=== PATIENT | female | born 1970 | race Caucasian/White ===

== ENCOUNTER → 2016-11-14 | Outpatient (CLI) | payer BC ==
[~2016-11-14] MED LIST: ATOR10TA60 PO; BUPIVACAINE MPF 0.5% 10 ML VIAL for KCIC. IJ ONE; CITA20TA5 PO; CONTRAST GIVEN MC PRN; FERR-26 PO; IOHEXOL 300 MG/ML 50 ML VIAL. INT ART ONE; LIDOCAINE 1% Multi-Dose 20 ML VIAL. ID ONE; LOSA50TA6 PO; METF-620 PO; PIOG30TA3 PO; methylPREDNISolone ACETATE 40 MG/ML VIAL. INT ART ONE
--- NOTE | 2016-11-14 11:42 | KCIC ---
Right hip injection History: Right hip pain Findings: Patient was informed of the risks to include pain, infection, bleeding, nerve or blood vessel injury, and allergic reaction. All questions were answered. The patient signed a written consent form for a right hip injection. Patient was placed in a supine position. External skin site overlying the right hip was prepped and draped in the usual sterile fashion. Betadine was utilized for cleansing solution. 1% lidocaine was utilized for local anesthesia to the depth of the right femoral neck. 22-gauge spinal needle was advanced to the margin of the right femoral neck. Solution containing 2 mL Depo-Medrol , 4 cc lidocaine, 4 cc Omnipaque 300, and 4 cc Marcaine were injected. Injection demonstrated intra-articular position of the needle tip although only 6 cc of the solution could be injected at which point there was firm resistance to further injection despite needle repositioning. Needle was removed. There were no immediate complications. Bandage was applied at site of puncture. Fluoroscopy time: 49 seconds, 2 fluoroscopic images. Impression: 1. Technically successful right hip injection without immediate complication. Electronically signed by: Alen Rojas MD (11/14/2016 11:38 AM)
== END | disposition home or self-care (01) ==
LOC: KCIC 10:14
PROVIDERS: ATTEND Orthopaedic Surgery Sports Medicine
DX: M25.551 Pain in right hip (principal); G89.29 Other chronic pain
CPT/HCPCS: 20610; 77002; J1030; Q9967

== ENCOUNTER 2016-12-09 18:22 | Inpatient (IN) | payer BC ==
[~2016-12-09] VITALS: Ht 160 cm; Wt 71.9 kg
[~2016-12-09 18:22] MED LIST changes: -BUPIVACAINE MPF 0.5% 10 ML VIAL for KCIC. IJ ONE; -CONTRAST GIVEN MC PRN; -IOHEXOL 300 MG/ML 50 ML VIAL. INT ART ONE; -LIDOCAINE 1% Multi-Dose 20 ML VIAL. ID ONE; -methylPREDNISolone ACETATE 40 MG/ML VIAL. INT ART ONE
[2016-12-09] MEDS ORDERED: DESFLURANE 31 TO 60 MINUTES IH ONE (19:21)
[2016-12-09] MEDS ORDERED: DEXAMETHASONE SOD PHOS 20 MG/5 ML VIAL. ONE (19:22)
[2016-12-09] MEDS ORDERED: ROCURONIUM 50 MG/5 ML VIAL. ONE (19:22)
[2016-12-09] MEDS ORDERED: PROPOFOL 20 ML IV ONE (19:22)
[2016-12-09] MEDS ORDERED: LIDOCAINE 2% PF Vial for OR 5 ML VIAL. ONE (19:22)
[2016-12-09] MEDS ORDERED: ONDANSETRON PF 4 MG/2 ML VIAL. ONE (19:22)
[2016-12-09] MEDS ORDERED: GLYCOPYRROLATE 1 MG/5 ML VIAL. ONE (19:22)
[2016-12-09] MEDS ORDERED: NEOSTIGMINE METHYLSULFATE 5 MG/5 ML SYRINGE. ONE (19:22)
[2016-12-09] MEDS ORDERED: MIDAZOLAM HCL/PF 2 MG/2 ML VIAL. ONE (19:22)
[2016-12-09] MEDS ORDERED: fentaNYL PF VIAL 100 MCG/2 ML VIAL ONE ×3 (19:22→21:17)
[2016-12-09] MEDS ORDERED: BUPIVACAINE-EPI 0.5%-1:200000 50 ML VIAL. ONE (19:27)
[2016-12-09] MEDS ORDERED: ceFAZolin 1GM IVPB FOR OMNI 100 ML IV ONE (19:28)
[2016-12-09] MEDS ORDERED: KETOROLAC 30 MG/ML INJ FOR OR. INJ ONE (19:34)
[2016-12-09] MEDS ORDERED: ePHEDrine PF IN SALINE 50 MG/5 ML DISP.SYRIN IV ONE (19:48)
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
[2016-12-09] MEDS ORDERED: PHENYLEPHRINE in 0.9% NACL PF 1 MG/10 ML DISP.SYRIN. IV ONE (20:01)
[2016-12-09] MEDS ORDERED: MORPHINE SULFATE 10 MG/ML VIAL. ONE (20:36)
[2016-12-09] MEDS ORDERED: ONDANSETRON PF 4 MG/2 ML VIAL. IV PRN ×2 (21:15→21:30)
[2016-12-09] MEDS ORDERED: MORPHINE SULFATE 2 MG/ML DISP.SYRIN. IV PRN (21:15)
[2016-12-09] MEDS ORDERED: fentaNYL PF VIAL 100 MCG/2 ML VIAL IV PRN ×2 (21:15)
[2016-12-09] MEDS ORDERED: IV RINGERS,LACTATED 1000ML 1,000 ML IV SCH (21:15)
[2016-12-09] MEDS ORDERED: PROCHLORPERAZINE 10 MG/2 ML VIAL. IV PRN (21:15)
[2016-12-09] MEDS ORDERED: HYDROmorphone 2 MG/ML VIAL IV PRN (21:15)
[2016-12-09] MEDS ORDERED: LIDOCAINE 1% 1 ML SYRINGE. ID PRN (21:15)
--- NOTE | 2016-12-09 21:18 | PDOC4 ---
OPERATIVE NOTE: dos 12/09/16 (dictation line down) pre and post op dx: incarcerated recurrent incisional hernia procedure repair of incarcerated recurrent incisional hernia with mesh shravan reyna ebl 25 ivf 1300 indications: presents with incarcerated hernia and sbo findings: bowel viable. hernia repaired with 8 cm bard ventralex patch placed in retrorectus/preperitoneal space procedure in detail: after site marked and informed consent was obtained, she was taken to the OR and placed in supine position. after induction of general anesthetic, she was prepped and draped in sterile fashion. incision made over the hernia. hernia located in right lateral lower abdomen just above the iliac crest--more lateral and superior than an inguinal hernia and more lateral than typical spigellian hernia. subq tissue divided with cautery. hernia sac encountered and entered sharply. viable bowel within sac was able to be reduced. sac dissected from surrounding tissue and at level of fascia, the sac/peritoneum was dissected away from the fascia circumferentially. in doing so, the dissection was in the retrorectus space medially and preperitoneal space inferiorly extending deep to the iliac crest and retroperitoneum laterally. the excess hernia sac was excised and the sac closed with 3-0 vicryl in running fashion. the 8 cm bard patch was placed in the retrorectus/preperitoneal/retroperitoneal space. the hernia defect was approx 2x3 cm. the mesh extended past the fascial edges for several cm. the mesh was secured to the fascia in at least 6-7 places with 0- prolene suture. the fascia was closed over the mesh with running 0-prolene suture. the area was irrigated. it was hemostatic as the repair was being performed. the site was injected with local. scarpas closed with 3-0 vicryl. skin closed with 4-0 monocryl subq fashion. sterile dressing was placed. joyce procedure well. no complicatoins. in process of tx to rr in stable condition. KRISTAL WALKER MD Dec 09, 2016 21:18
[2016-12-09] MEDS ORDERED: METOCLOPRAMIDE HCL 10 MG/2 ML VIAL. IV PRN (21:30)
[2016-12-09 22:15] VITALS: BP 135/67
[2016-12-09 22:30] VITALS: BP 130/67
[2016-12-09 22:45] VITALS: BP 125/67
[2016-12-09 23:00] VITALS: BP 130/71
[2016-12-09 23:15] VITALS: BP 118/59
[2016-12-09 23:45] VITALS: BP 123/63
[2016-12-09] MEDS: oxyCODONE/APAP 5/325 1 TAB TABLET PO PRN (23:50)
[2016-12-10] VITALS (8 sets, daily range): BP systolic 90–126; BP diastolic 41–65
--- NOTE | 2016-12-10 04:15 | ACF ---
Admission Forms Criteria ABDOMINAL PAIN Clinical Indications for Admission to Inpatient Care (Place 'X' for any and all applicable criteria): Admission is indicated for ANY ONE of the following(1)(2)(3)(4)(5): [ ]I. Inpatient admission required rather than observation care (Also use Abdominal Pain: Observation Care, as appropriate) because of ANY ONE of the following: [ ]a) Severe pain requiring acute inpatient management [ ]b) Identification of etiology/finding that requires inpatient care (eg, aortic dissection, free air) [ ]c) Absent bowel sounds with complete ileus(6) [ ]d) Suspected toxic megacolon [ ]e) Severe electrolyte abnormalities requiring inpatient care [ ]f) High fever or infection requiring inpatient admission as indicated by ANY ONE of following(7)(8): [ ] i) Appropriate outpatient or observational care antimicrobial treatment unavailable, not effective, or not feasible [ ] ii) Documented bacteremia [ ] iii) Temperature > 104.9 degrees F (oral) [ ] iv) T >103.1 F (oral) or < 96.8 F(rectal) that does not respond to all emergency treatment measures [ ]g) Signs of intestinal obstruction [B] [ ]h) Hemodynamic instability [ ]i) IV fluid to replace significant ongoing losses (greater than 3 L/m2 per day) (12)(13) [ ]j) Percutaneous or open drainage (eg, abscess, biliary tract ) procedures [ ]k) Parenteral nutrition regimen that must be implemented on inpatient basis [ ]l) Other condition,treatment or monitoring requiring inpatient admission. [ ]II. Peritoneal signs present [ X]III. Surgery needed that cannot be performed on an ambulatory basis. [ ]IV. Evaluation requires patient to not eat or drink for extended period ( eg, more than 24 hours). [ ]V. Contraindications and/or Inappropriate clinical situations for Observational Care in patients with abdominal pain, when ANY ONE of the following is required: [ ]a) Thorough evaluation is required to prevent catastrophic events due to delays in diagnosing (e.g.Mesenteric ischemia) 1,3 [ ]b) Patient with severe pathology or with chronic symptoms unlikely to improve in the ED stay (3) [ ]. General contraindications and/or Inappropriate clinical situations for Observational Care in patients with abdominal pain, when ANY ONE of the following is required: [ ]a) Prediction of prolongation of LOS based on ANY ONE of the following may be considered as a contraindication for observational care 2, 3, 4, 5, 6, 7, 8, 9, 10, 11 [ ]i) Age > 65 yrs. [ ]ii) Patient arriving by ambulance [ ]iii) Patient with high acuity [ ]iv) Patient requiring vital sign monitoring [ ]v) Patient on IV medication [ ]b) Systolic blood pressures 180mmHg 3,12 [ ]c) Patient with altered mental status including delirium and other alteration of consciousness, (3) [ ]d) Patient whose discharge disposition will be to a care home home or rehabilitation home should not be managed in Emergency Department Observation Unit. CMS rule requires 3 days hospital stay before such placement.3,13 [ ]e) Patient with failure to thrive due to broad array of etiologies 3,16,17 [ ]f) Inability to ambulate 3,14 Extended stay beyond goal length of stay may be needed for(2)(3): [ ]a) Persistent abdominal pain with suspected intra-abdominal process [ ]b) Diagnosed condition requiring continued stay (e.g., pancreatitis, complicated diverticulitis) [ ]c) Surgery (e.g., colectomy) The original [employer] [facility] the [facility] content created by [employer] has been revised. The portions of the content which have been revised are identified through the use of italic text or in bold, and [facility] has neither reviewed nor approved the modified material.All other unmodified content is copyright [employer] includes the [facility]. Please see references footnoted in the original [facility] [employer] edition 2016 Admission Criteria Met?: Yes RAY SANTOS Dec 10, 2016 04:15
[2016-12-10] MEDS: oxyCODONE/APAP 5/325 1 TAB TABLET PO PRN ×4 (06:10→22:57)
--- NOTE | 2016-12-10 16:29 | PDOC ---
Provider Note Provider Note doing well. pain controlled joyce po, no flatus or bm afeb vss ambulating in halls after i saw her. abd soft nd min tender at inc inc: some old dark blood serosang drainage expressed through wound, wound now dry. redressed with mastisol, steristrips, 4x4 and tape after cleansing with alcohol. a/p pod #1 incarcerated recurrent incisional hernia repair with mesh. pt thinks she still too weak/unsteady to dc home today. KRISTAL WALKER MD Dec 10, 2016 16:29
[2016-12-10] MEDS ORDERED: SENNOSIDES/DOCUSATE 8.6/50MG TABLET. PO PRN (16:45)
--- NOTE | 2016-12-10 16:59 | PDOC ---
Provider Note Provider Note given bleeding at wound today during dressing changes and the fact that she is up and ambulating in the halls, will not start pharmocologic dvt proph (like lovenox or heparin). KRISTAL WALKER MD Dec 10, 2016 16:59
[2016-12-10] MEDS: POLYETHYLENE GLYCOL 3350 17 GM PACKET. PO PRN (18:07)
[2016-12-11] MEDS: oxyCODONE/APAP 5/325 1 TAB TABLET PO PRN ×3 (03:00→14:41)
[2016-12-11 03:35] VITALS: BP 106/62
[2016-12-11 07:00] VITALS: BP 118/57
[2016-12-11] MEDS: POLYETHYLENE GLYCOL 3350 17 GM PACKET. PO PRN (08:21)
[2016-12-11 11:00] VITALS: BP 101/54
--- NOTE | 2016-12-11 13:03 | PDOC ---
Provider Note Provider Note feeling well. joyce po. +flatus. no bm afeb vss abd soft nd nt inc cdi a/p dc home KRISTAL WALKER MD Dec 11, 2016 13:03
[2016-12-11] MEDS ORDERED: OXYC-323 PO (14:50)
[2016-12-11 15:00] VITALS: BP 120/60
--- NOTE | 2016-12-13 12:12 | PATHOLOGY ---
PATHOLOGY REPORT * * * * * * * * FINAL DIAGNOSIS: Segment of focal mesothelial-lined fibromembranous and fibroadipose tissue, incisional/incarcerated hernia repair: - Hernia sac showing congestion and focal recent hemorrhage. (JPM:mgr; 12/12/2016) REPORT ELECTRONICALLY SIGNED BY: Jose Carlos Munroe M.D. DATE/TIME: 12/12/2016 13:43 * * * * * * * * GROSS PATHOLOGY: Received in formalin labeled "Vasquez Ramirez, hernia sac," is a piece of dark purple sesay membranous tissue measuring 12.7 x 3.7 x 1.8 cm. No nodules or lesions are identified. 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 (JPM; 12/11/16) INITIAL CPT CODE(S): A; 00663 Professional services performed by [id number] [place] [address] Technical services performed by [facility] at [address] [place] [address] [address], [place] [address]. SPECIMEN(S) RECEIVED: A.Hernia sac CLINICAL HISTORY: PATIENT: VASQUEZ RAMIREZ /AGE: 902/18/1970 (Age: 46) PATIENT #: [id number] ALT CASE #: SPECIMEN COLLECTION DATE: 12/09/2016 SPECIMEN RECEIVED DATE: 12/11/2016 [facility] - [address] [place] [address] - PHONE: [phone] * * * END OF REPORT * * *
== END 2016-12-11 14:45 | disposition home or self-care (01) | DRG 355 ==
LOC: 4 NORTH 19:12
PROVIDERS: ADMIT Surgery; ATTEND Surgery
PROC: 0WUF0JZ Supplement Abdominal Wall with Synthetic Substitute, Open Approach (ICD-10-PCS; principal; 2016-12-09 19:23)
DX: K43.0 Incisional hernia with obstruction, without gangrene (principal); F32.9 Major depressive disorder, single episode, unspecified; Z90.710 Acquired absence of both cervix and uterus; Z88.2 Allergy status to sulfonamides; Z90.89 Acquired absence of other organs; I10 Essential (primary) hypertension; Z93.8 Other artificial opening status
CPT/HCPCS: A4215; A6539; J0690; J1100; J1885; J2001; J2250; J2270; J2370; J2405; J2704; J2710; J3010; J3490; J7120

== ENCOUNTER 2016-12-28 01:20 | Inpatient (IN) | payer BC ==
[~2016-12-28] VITALS: Ht 160 cm; Wt 72.6 kg
[2016-12-28] VITALS (19 sets, daily range): BP systolic 77–127; BP diastolic 39–72
[~2016-12-28 01:20] MED LIST changes: +OXYC-323 PO
[2016-12-28] MEDS ORDERED: HYDR-79 PO (05:14)
[2016-12-28] MEDS ORDERED: CITA10TA4 PO (05:14)
[2016-12-28] MEDS ORDERED: AZIL40TA PO (05:14)
[2016-12-28] MEDS ORDERED: LEVO50TA5 PO (05:14)
[2016-12-28] MEDS: IV NORMAL SALINE 1000ML BAG 1,000 ML IV SCH ×3 (06:08→23:53)
[2016-12-28 07:05] LABS: ALBUMIN 2.8 g/dL (3.4-5.0); ALBUMIN/GLOBULIN RATIO 0.8 (1.0-1.7); CALCIUM 8.1 mg/dL (8.5-10.1); CREATININE 0.7 mg/dL (0.6-1.0); GFR 90.1; POTASSIUM 4.2 mmol/L (3.5-5.1); TOTAL BILIRUBIN 0.2 mg/dL (0.2-1.0); TOTAL PROTEIN 6.2 g/dL (6.4-8.2)
[2016-12-28 07:06] LABS: HEMATOCRIT 29.1 % (36.0-47.0); HEMOGLOBIN 9.9 g/dL (12.0-15.5); RED BLOOD COUNT 3.24 x10^6/uL (3.50-5.40); RED CELL DISTRIBUTION WIDTH 12.9 % (11.5-14.5); WHITE BLOOD COUNT 12.5 x10^3/uL (4.0-11.0)
[2016-12-28 07:16] LABS: INR 1.3 (0.8-1.1); PROTHROMBIN TIME PATIENT 15.2 SEC (11.7-14.0)
[2016-12-28] MEDS ORDERED: LIDOCAINE 1% / SOD BICARB 8.4% 20 ML VIAL. IJ ONE ×2 (07:56→09:00)
[2016-12-28] MEDS ORDERED: HEPARIN for ARTERIAL LINE 1,500 ML ONE (07:56)
[2016-12-28] MEDS ORDERED: IOHEXOL 300 MG/ML 100ML VIAL. ONE (07:56)
[2016-12-28] MEDS ORDERED: MIDAZOLAM HCL/PF 2 MG/2 ML VIAL. ONE (08:21)
[2016-12-28] MEDS ORDERED: fentaNYL PF VIAL 100 MCG/2 ML VIAL ONE (08:21)
[2016-12-28] MEDS ORDERED: MIDAZOLAM HCL/PF 2 MG/2 ML VIAL. IV ONE (09:00)
[2016-12-28] MEDS ORDERED: fentaNYL PF VIAL 100 MCG/2 ML VIAL IV ONE (09:00)
[2016-12-28] MEDS ORDERED: IOHEXOL 300 MG/ML 100ML VIAL. IART ONE (09:00)
[2016-12-28] MEDS ORDERED: CONTRAST GIVEN MC PRN (09:15)
[2016-12-28] MEDS: LEVOTHYROXINE 50 MCG TABLET PO SCH (09:56)
[2016-12-28] MEDS: HYDROmorphone 2 MG/ML VIAL IVP PRN ×3 (09:57→22:01)
[2016-12-28] MEDS ORDERED: IV NORMAL SALINE 1000ML BAG 1,000 ML IV ONE (11:00)
--- NOTE | 2016-12-28 11:12 | PDOC ---
Provider Note Provider Note #[id number] advance diet serial h and h. KRISTAL WALKER MD Dec 28, 2016 11:12
--- NOTE | 2016-12-28 11:52 | RAD ---
12/28/2016 1. Pelvic angiography 2. Selective angiography of the right inferior epigastric artery 3. Coil embolization of the right inferior epigastric artery Discussion: Patient is a 46-year-old female with a right rectus sheath hematoma and active extravasation of contrast consistent with bleeding arising from the right inferior epigastric artery on recent CT scan. The patient is a had a significant decrease in hemoglobin and is hypotensive. The retroperitoneal component of hemorrhage is also present on CT scan which appears to arise from the more anterior abdominal wall hematoma. The risks, benefits, and alternatives of the procedure were discussed the patient. Informed consent was obtained. The patient was brought to fluoroscopy suite and placed in supine position. A timeout procedure was performed. The left groin is prepped and draped using sterile barrier technique. 1% lidocaine without epinephrine was administered for local anesthesia. Left common femoral artery was accessed using micropuncture technique and direct ultrasound guidance. Ultrasound images were saved to the medical record. A 5 Icelandic vascular sheath was placed. Nonocclusive catheter was advanced into the inferior abdominal aorta. Pelvic angiography was performed delineating arterial anatomy. No paxton extravasation of contrast was identified. Bentson wire was used to cross the aortic bifurcation. Amniotic flush catheter was exchanged for a Cobra 2 catheter and selective angiography of the right inferior epigastric artery was performed. Selective arteriography of anterior epigastric branches was performed with a microcatheter. Mild hyperemia and minimal vessel irregularity was seen without paxton extravasation of contrast. However given patients prior imaging findings, and clinical status, decision was made to proceed with coil embolization of the inferior epigastric artery. This was performed using a combination of 3 and 4 mm coils. Repeat angiograms were performed demonstrate embolization to stasis in the area of prior extravasation as would correlate with prior CT imaging. All catheters wires and sheaths were removed. Angiography of the left groin demonstrates puncture site metabolically device use. An Angio-Seal device was dilated to achieve hemostasis. Sterile dressing was applied. No immediate complications were identified. Fluoroscopy time: 13.0 minutes Dose area product: 269 sesay centimeters squared The procedure was performed under conscious sedation including continuous cardiopulmonary monitoring via dedicated sedation nurse. Sedation time was approximately 1.5 hours Impression: No paxton extravasation of contrast or definitive active bleeding was identified. Mild vascular irregularity in the small branches arising from the right inferior epigastric artery noted.. Coil embolization of the right inferior epigastric artery was performed based on clinical status and findings on prior CT exam.
[2016-12-28 12:28] LABS: HEMATOCRIT 25.5 % (36.0-47.0); HEMOGLOBIN 8.8 g/dL (12.0-15.5); RED BLOOD COUNT 2.81 x10^6/uL (3.50-5.40); RED CELL DISTRIBUTION WIDTH 12.8 % (11.5-14.5); WHITE BLOOD COUNT 9.7 x10^3/uL (4.0-11.0)
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
[2016-12-28] MEDS ORDERED: PHYTONADIONE (VIT K1) IV 10 MG in IV NORMAL SALINE 50ML 50 ML IV ONE (14:00)
--- NOTE | 2016-12-28 14:15 | PDOC1 ---
History and Physical Date of Admission Date of Admission DATE: 12/28/16 TIME: 14:09 Identification/Chief Complaint Chief Complaint abd pain Problems: Source Source: Caregiver, Chart review, Patient History of Present Illness History of Present Illness Ms. Gutierrez is a 46-year-old female transferred from [place], acute abd pain, abd bleeding and hematoma. Recent operation 12/09 for incarcerated right recurrent incisional hernia repair with mesh, she had done well, and saw in clinic 2 days prior and looked well. Sudden pain last night, to ER with acute RLQ pain, 9/10 severe, CT showed new hematoma, and retroperitoneal as well as a rectus sheath hematoma and active extravasation of contrast... transferred here IR intervention was done this AM Coil of inferior epigastric seems to be successful. Past Medical History Cardiovascular: HTN, Hyperlipidemia Pulmonary: No pertinent hx GI: No pertinent hx Heme/Onc: No pertinent hx Hepatobiliary: No pertinent hx Psych: Depression Musculoskeletal: low back pain Infectious disease: No pertinent hx ENT: No pertinent hx Renal/: No pertinent hx Endocrine: No pertinent hx Dermatology: No pertinent hx Family History Family History: Hypothyroidism Social History Smoke: No ALCOHOL: none Drugs: None Current Medications Current Medications Current Medications Lorazepam (Ativan) 0.5 mg PRN Q8HRS PRN IV ANXIETY / AGITATION; Start 12/28/16 at 05:15 Hydromorphone HCl (Dilaudid) 0.3 mg PRN Q2HRS PRN IVP SEVERE PAIN Last administered on 12/28/16 09:57; Start 12/28/16 at 05:15 Sodium Chloride 1,000 ml @ 100 mls/hr Q10H IV Last administered on 12/28/16 11 :04; Start 12/28/16 at 05:15 Levothyroxine Sodium (Synthroid) 50 mcg DAILY07 PO Last administered on 09:56; Start 12/28/16 at 07:00 Iohexol (Omnipaque 300 Mg/ml) 100 ml STK-MED ONCE .ROUTE ; Start 12/28/16 at 07: 56; Stop 12/28/16 at 07:57; Status DC Lidocaine/Sodium Bicarbonate (Buffered Lidocaine 1%) 20 ml STK-MED ONCE IJ ; Start 12/28/16 at 07:56; Stop 12/28/16 at 07:57; Status DC Heparin Sodium/ Sodium Chloride 1,500 ml @ As Directed STK-MED ONCE .ROUTE ; Start 12/28/16 at 07:56; Stop 12/28/16 at 07:57; Status DC Fentanyl Citrate (Fentanyl 2ml Vial) 100 mcg STK-MED ONCE .ROUTE ; Start at 08:21; Stop 12/28/16 at 08:22; Status DC Midazolam HCl (Versed) 2 mg STK-MED ONCE .ROUTE ; Start 12/28/16 at 08:21; Stop 12/28/16 at 08:22; Status DC Heparin Sodium/ Sodium Chloride 500 ml @ As Directed STK-MED ONCE .ROUTE ; Start 12/28/16 at 08:35; Stop 12/28/16 at 08:36; Status DC Heparin Sodium/ Sodium Chloride 1,000 unit 1X ONCE IART Last administered on 09:26; Start 12/28/16 at 09:00; Stop 12/28/16 at 09:03; Status DC Heparin Sodium/ Sodium Chloride 1,000 unit 1X ONCE IART Last administered on 09:27; Start 12/28/16 at 09:00; Stop 12/28/16 at 09:03; Status DC Lidocaine/Sodium Bicarbonate (Buffered Lidocaine 1%) 2 ml 1X ONCE IJ Last administered on 12/28/16 09:27; Start 12/28/16 at 09:00; Stop 12/28/16 at 09:03; Status DC Midazolam HCl (Versed) 2 mg 1X ONCE IV Last administered on 12/28/16 09:28; Start 12/28/16 at 09:00; Stop 12/28/16 at 09:03; Status DC Fentanyl Citrate (Fentanyl 2ml Vial) 100 mcg 1X ONCE IV Last administered on 09:28; Start 12/28/16 at 09:00; Stop 12/28/16 at 09:03; Status DC Iohexol (Omnipaque 300 Mg/ml) 100 ml 1X ONCE IART Last administered on 09:27; Start 12/28/16 at 09:00; Stop 12/28/16 at 09:03; Status DC Info (Do NOT chart on this entry -- for MONITORING) 1 each PRN DAILY PRN MC SEE COMMENTS; Start 12/28/16 at 09:15; Stop 12/30/16 at 09:14 Sodium Chloride 1,000 ml @ 900 mls/hr 1X ONCE IV Last administered on t 10:55; Start 12/28/16 at 11:00; Stop 12/28/16 at 12:06; Status DC Phytonadione 10 mg/Sodium Chloride 51 ml @ 102 mls/hr 1X ONCE IV ; Start at 14:00; Stop 12/28/16 at 14:29 Active Scripts Active Reported Levothyroxine Sodium 50 Mcg Tablet 1 Tab PO DAILY Edarbi (Azilsartan Medoxomil) Unknown Strength Tablet 80 Mg PO DAILY Percocet 5-325 Mg Tablet (Oxycodone/Acetaminophen) 1 Each Tablet 1-2 Tab PO Q4HRS PRN Citalopram Hbr (Citalopram Hydrobromide) 20 Mg Tablet 20 Mg PO DAILY06 Allergies Allergies: Coded Allergies: Sulfa (Sulfonamide Antibiotics) (Verified Allergy, Intermediate, Swelling , 05/22/13) ROS General: No: Chills, Night Sweats, Fatigue, Malaise, Appetite, Other PSYCHOLOGICAL ROS: No: Anxiety, Behavioral Disorder, Concentration difficultie , Decreased libido, Depression, Disorientation, Hallucinations, Hostility, Irritablity, Memory difficulties, Mood Swings, Obsessive thoughts, Physical abuse, Sexual abuse, Sleep disturbances, Suicidal ideation, Other Eyes: No Blurry vision, No Decreased vision, No Double vision, No Dry eyes, No Excessive tearing, No Eye Pain, No Itchy Eyes, No Loss of vision, No Photophobia , No Scotomata, No Uses contacts, No Uses glasses, No Other Respiratory: No: Cough, Hemoptysis, Orthopnea, Pleuritic Pain, Shortness of breath, SOB with excertion, Sputum Changes, Stridor, Tachypnea, Wheezing, Other Cardiovascular: No Chest Pain, No Palpitations, No Orthopnea, No Paroxysmal Noc. Dyspnea, No Edema, No Lt Headedness, No Other Gastrointestinal: Yes Nausea, Yes Abdominal Pain, No Vomiting, No Diarrhea, No Constipation, No Melena, No Hematochezia, No Other Genitourinary: No Dysuria, No Frequency, No Incontinence, No Hematuria, No Retention, No Discharge, No Urgency, No Pain, No Flank Pain, No Other, No , No , No , No , No , No , No Musculoskeletal: No Gait Disturbance, No Joint Pain, No Joint Stiffness, No Joint Swelling, No Muscle Pain, No Muscular Weakness, No Pain In:, No Swelling In:, No Other Neurological: No Behavorial Changes, No Bowel/Bladder ControlChng, No Confusion , No Dizziness, No Gait Disturbance, No Headaches, No Impaired Coord/balance, No Memory Loss, No Numbness/Tingling, No Seizures, No Speech Problems, No Tremors, No Visual Changes, No Weakness, No Other Skin: Yes Dry Skin, No Eczema, No Hair Changes, No Lumps, No Mole Changes, No Mottling, No Nail Changes, No Pruritus, No Rash, No Skin Lesion Changes, No Other, No Acne Physical Exam General: Alert, Oriented X3, Cooperative, No acute distress HEENT: Atraumatic, PERRLA, EOMI, Mucous membr. moist/pink Lungs: Normal air movement Heart: no gallops, no murmurs Abdomen: Soft (tender), Other (limited guarding) Rectal Exam: deferred Extremities: No clubbing, No edema, Normal pulses Skin: No rashes, No breakdown, No significant lesion Neuro: Normal speech, Normal tone Psych/Mental Status: Mental status NL, Mood NL Vitals Vitals Vital Signs Date Time Temp Pulse Resp B/P (MAP) Pulse Ox O2 Delivery O2 Flow Rate FiO2 12/28/16 14:00 70 16 91/58 (69) 100 12/28/16 12:00 Room Air 12/28/16 11:01 98.0 2.0 98.0 Labs Labs Laboratory Tests Test 12/28/16 06:37 12/28/16 12:15 White Blood Count 12.5 x10^3/uL (4.0-11.0) 9.7 x10^3/uL (4.0-11.0) Red Blood Count 3.24 x10^6/uL (3.50-5.40) 2.81 x10^6/uL (3.50-5.40) Hemoglobin 9.9 g/dL (12.0-15.5) 8.8 g/dL (12.0-15.5) Hematocrit 29.1 % (36.0-47.0) 25.5 % (36.0-47.0) Mean Corpuscular Volume 90 fL (79-100) 91 fL (79-100) Mean Corpuscular Hemoglobin 31 pg (25-35) 31 pg (25-35) Mean Corpuscular Hemoglobin Concent 34 g/dL (31-37) 34 g/dL (31-37) Red Cell Distribution Width 12.9 % (11.5-14.5) 12.8 % (11.5-14.5) Platelet Count 181 x10^3/uL (140-400) 151 x10^3/uL (140-400) Prothrombin Time 15.2 SEC (11.7-14.0) Prothromb Time International Ratio 1.3 (0.8-1.1) Activated Partial Thromboplast Time 26 SEC (24-38) Sodium Level 141 mmol/L (136-145) Potassium Level 4.2 mmol/L (3.5-5.1) Chloride Level 106 mmol/L (98-107) Carbon Dioxide Level 27 mmol/L (21-32) Anion Gap 8 (6-14) Blood Urea Nitrogen 13 mg/dL (7-20) Creatinine 0.7 mg/dL (0.6-1.0) Estimated GFR (Cockcroft-Gault) 90.1 BUN/Creatinine Ratio 19 (6-20) Glucose Level 148 mg/dL (70-99) Calcium Level 8.1 mg/dL (8.5-10.1) Total Bilirubin 0.2 mg/dL (0.2-1.0) Aspartate Amino Transf (AST/SGOT) 19 U/L (15-37) Alanine Aminotransferase (ALT/SGPT) 28 U/L (14-59) Alkaline Phosphatase 52 U/L (46-116) Total Protein 6.2 g/dL (6.4-8.2) Albumin 2.8 g/dL (3.4-5.0) Albumin/Globulin Ratio 0.8 (1.0-1.7) Laboratory Tests Test 12/28/16 06:37 12/28/16 12:15 White Blood Count 12.5 x10^3/uL (4.0-11.0) 9.7 x10^3/uL (4.0-11.0) Red Blood Count 3.24 x10^6/uL (3.50-5.40) 2.81 x10^6/uL (3.50-5.40) Hemoglobin 9.9 g/dL (12.0-15.5) 8.8 g/dL (12.0-15.5) Hematocrit 29.1 % (36.0-47.0) 25.5 % (36.0-47.0) Mean Corpuscular Volume 90 fL (79-100) 91 fL (79-100) Mean Corpuscular Hemoglobin 31 pg (25-35) 31 pg (25-35) Mean Corpuscular Hemoglobin Concent 34 g/dL (31-37) 34 g/dL (31-37) Red Cell Distribution Width 12.9 % (11.5-14.5) 12.8 % (11.5-14.5) Platelet Count 181 x10^3/uL (140-400) 151 x10^3/uL (140-400) Prothrombin Time 15.2 SEC (11.7-14.0) Prothromb Time International Ratio 1.3 (0.8-1.1) Activated Partial Thromboplast Time 26 SEC (24-38) Sodium Level 141 mmol/L (136-145) Potassium Level 4.2 mmol/L (3.5-5.1) Chloride Level 106 mmol/L (98-107) Carbon Dioxide Level 27 mmol/L (21-32) Anion Gap 8 (6-14) Blood Urea Nitrogen 13 mg/dL (7-20) Creatinine 0.7 mg/dL (0.6-1.0) Estimated GFR (Cockcroft-Gault) 90.1 BUN/Creatinine Ratio 19 (6-20) Glucose Level 148 mg/dL (70-99) Calcium Level 8.1 mg/dL (8.5-10.1) Total Bilirubin 0.2 mg/dL (0.2-1.0) Aspartate Amino Transf (AST/SGOT) 19 U/L (15-37) Alanine Aminotransferase (ALT/SGPT) 28 U/L (14-59) Alkaline Phosphatase 52 U/L (46-116) Total Protein 6.2 g/dL (6.4-8.2) Albumin 2.8 g/dL (3.4-5.0) Albumin/Globulin Ratio 0.8 (1.0-1.7) VTE Prophylaxis Ordered VTE Prophylaxis Devices: Yes VTE Pharmacological Prophylaxi: Contraindicated Assessment/Plan Assessment/Plan Acute abdominal pain, abdominal wall hematoma, taken to IR this AM, coil embolization of inferior epigastric done, seems effective, pain better, now just soreness follow Hgb Q6, transfuse if cont to drop acute blood loss anemia of abd hematoma, Hgb now 8.8 moderate malnutriion, Alb 2.8, BMI 28 PAIGE VILLEDA MD Dec 28, 2016 14:15
--- NOTE | 2016-12-29 00:17 | ACF ---
Admission Forms Criteria ABDOMINAL PAIN Clinical Indications for Admission to Inpatient Care (Place 'X' for any and all applicable criteria): Admission is indicated for ANY ONE of the following(1)(2)(3)(4)(5): [X]I. Inpatient admission required rather than observation care (Also use Abdominal Pain: Observation Care, as appropriate) because of ANY ONE of the following: [X]a) Severe pain requiring acute inpatient management [ ]b) Identification of etiology/finding that requires inpatient care (eg, aortic dissection, free air) [ ]c) Absent bowel sounds with complete ileus(6) [ ]d) Suspected toxic megacolon [ ]e) Severe electrolyte abnormalities requiring inpatient care [ ]f) High fever or infection requiring inpatient admission as indicated by ANY ONE of following(7)(8): [ ] i) Appropriate outpatient or observational care antimicrobial treatment unavailable, not effective, or not feasible [ ] ii) Documented bacteremia [ ] iii) Temperature > 104.9 degrees F (oral) [ ] iv) T >103.1 F (oral) or < 96.8 F(rectal) that does not respond to all emergency treatment measures [ ]g) Signs of intestinal obstruction [B] [ ]h) Hemodynamic instability [ ]i) IV fluid to replace significant ongoing losses (greater than 3 L/m2 per day) (12)(13) [ ]j) Percutaneous or open drainage (eg, abscess, biliary tract ) procedures [ ]k) Parenteral nutrition regimen that must be implemented on inpatient basis [ ]l) Other condition,treatment or monitoring requiring inpatient admission. [ ]II. Peritoneal signs present [ ]III. Surgery needed that cannot be performed on an ambulatory basis. [ ]IV. Evaluation requires patient to not eat or drink for extended period ( eg, more than 24 hours). [ ]V. Contraindications and/or Inappropriate clinical situations for Observational Care in patients with abdominal pain, when ANY ONE of the following is required: [ ]a) Thorough evaluation is required to prevent catastrophic events due to delays in diagnosing (e.g.Mesenteric ischemia) 1,3 [ ]b) Patient with severe pathology or with chronic symptoms unlikely to improve in the ED stay (3) [ ]. General contraindications and/or Inappropriate clinical situations for Observational Care in patients with abdominal pain, when ANY ONE of the following is required: [ ]a) Prediction of prolongation of LOS based on ANY ONE of the following may be considered as a contraindication for observational care 2, 3, 4, 5, 6, 7, 8, 9, 10, 11 [ ]i) Age > 65 yrs. [ ]ii) Patient arriving by ambulance [ ]iii) Patient with high acuity [ ]iv) Patient requiring vital sign monitoring [ ]v) Patient on IV medication [ ]b) Systolic blood pressures 180mmHg 3,12 [ ]c) Patient with altered mental status including delirium and other alteration of consciousness, (3) [ ]d) Patient whose discharge disposition will be to a intermediate home or rehabilitation home should not be managed in Emergency Department Observation Unit. CMS rule requires 3 days hospital stay before such placement.3,13 [ ]e) Patient with failure to thrive due to broad array of etiologies 3,16,17 [ ]f) Inability to ambulate 3,14 Extended stay beyond goal length of stay may be needed for(2)(3): [ ]a) Persistent abdominal pain with suspected intra-abdominal process [ ]b) Diagnosed condition requiring continued stay (e.g., pancreatitis, complicated diverticulitis) [ ]c) Surgery (e.g., colectomy) The original [facility] content created by [employer] has been revised. The portions of the content which have been revised are identified through the use of italic text or in bold, and [facility] has neither reviewed nor approved the modified material.All other unmodified content is copyright [facility]. Please see references footnoted in the original [facility] [employer] edition 2016 Admission Criteria Met?: Yes MIRACLE MORRIS Dec 29, 2016 00:17 JEFF VAUGHAN MD Jan 01, 2017 08:57
[2016-12-29 03:22] VITALS: BP 128/59
[2016-12-29] MEDS: ONDANSETRON PF 4 MG/2 ML VIAL. IV PRN ×2 (04:39→09:59)
[2016-12-29 05:39] LABS: ALBUMIN/GLOBULIN RATIO 0.9 (1.0-1.7); CALCIUM 7.5 mg/dL (8.5-10.1); CREATININE 0.7 mg/dL (0.6-1.0); GFR 90.1; POTASSIUM 3.8 mmol/L (3.5-5.1); TOTAL BILIRUBIN 0.3 mg/dL (0.2-1.0); TOTAL PROTEIN 6.4 g/dL (6.4-8.2)
[2016-12-29 05:48] LABS: BASO % 1 % (0-3); EOS % 4 % (0-3); HEMATOCRIT 24.9 % (36.0-47.0); HEMOGLOBIN 8.8 g/dL (12.0-15.5); LYMPH # 1.2 x10^3/uL (1.0-4.8); LYMPH % 15 % (24-48); MEAN CORPUSCULAR HEMOGLOBIN 31 pg (25-35); MEAN CORPUSCULAR HGB CONC 35 g/dL (31-37); MEAN CORPUSCULAR VOLUME 88 fL (79-100); MONO % 7 % (0-9); NEUT % 73 % (31-73); PLATELET COUNT 142 x10^3/uL (140-400); RED BLOOD COUNT 2.83 x10^6/uL (3.50-5.40); RED CELL DISTRIBUTION WIDTH 12.7 % (11.5-14.5); WHITE BLOOD COUNT 8.2 x10^3/uL (4.0-11.0)
[2016-12-29 07:00] VITALS: BP 144/78
[2016-12-29] MEDS: LEVOTHYROXINE 50 MCG TABLET PO SCH (07:00)
[2016-12-29] MEDS: HYDROmorphone 2 MG/ML VIAL IVP PRN (07:56)
--- NOTE | 2016-12-29 08:21 | PDOC ---
Provider Note Provider Note she feels swollen all over--face, torso, etc. some pain and nausea this am afeb hr 90 bp 144/[address] approp tenderness in RLQ inc healing well hgb stable at 8.8 a/p rectus sheath and retroperitoneal hematoma. s/p embolization. no further bleeding. dc ivf. home when joyce po and feeling better. KRISTAL WALKER MD Dec 29, 2016 08:21
[2016-12-29] MEDS ORDERED: oxyCODONE/APAP 5/325 1 TAB TABLET PO PRN ×2 (08:30→14:00)
--- NOTE | 2016-12-29 10:35 | PDOC ---
PROGRESS NOTES Chief Complaint Chief Complaint Acute abdominal pain ASSESSMENT AND PLAN: abdominal wall hematoma: s/p coil embolization of inferior epigastric art. on . no evidence of ongoing bleed Pain control: adequate. avoid narcotics as possible (see below) Nausea, constipation: switch to reglan for N/V. laxative PRN Anemia: acute bleed. stable since coil and transfusion. did receive IV iron. d/w her in detail; no plans for transfusions unless Hgb<7 moderate protein malnutrition: Alb 2.8, BMI 28. poss component of inflammation. protein rich diet recommended Dispo: porb home in AM; she is very anxious about recent events. tried to reassure and explain sx and treatment plan History of Present Illness History of Present Illness c/o mild nausea, constipation and ZAPATA Vitals Vitals Vital Signs Date Time Temp Pulse Resp B/P (MAP) Pulse Ox O2 Delivery O2 Flow Rate FiO2 12/29/16 09:59 Room Air 12/29/16 07:00 98.1 90 16 144/78 (100) 94 98.1 12/28/16 11:01 2.0 Physical Exam General: Alert, Oriented X3, Cooperative, No acute distress Heart: Regular rate Lungs: Clear Abdomen: Soft (tender) Extremities: No clubbing, No edema Skin: No rashes Labs LABS Laboratory Tests Test 12/28/16 12:15 12/28/16 20:30 12/29/16 05:04 White Blood Count 9.7 x10^3/uL (4.0-11.0) 8.2 x10^3/uL (4.0-11.0) Red Blood Count 2.81 x10^6/uL (3.50-5.40) 2.83 x10^6/uL (3.50-5.40) Hemoglobin 8.8 g/dL (12.0-15.5) 8.3 g/dL (12.0-15.5) 8.8 g/dL (12.0-15.5) Hematocrit 25.5 % (36.0-47.0) 24.9 % (36.0-47.0) Mean Corpuscular Volume 91 fL (79-100) 88 fL (79-100) Mean Corpuscular Hemoglobin 31 pg (25-35) 31 pg (25-35) Mean Corpuscular Hemoglobin Concent 34 g/dL (31-37) 35 g/dL (31-37) Red Cell Distribution Width 12.8 % (11.5-14.5) 12.7 % (11.5-14.5) Platelet Count 151 x10^3/uL (140-400) 142 x10^3/uL (140-400) Neutrophils (%) (Auto) 73 % (31-73) Lymphocytes (%) (Auto) 15 % (24-48) Monocytes (%) (Auto) 7 % (0-9) Eosinophils (%) (Auto) 4 % (0-3) Basophils (%) (Auto) 1 % (0-3) Neutrophils # (Auto) 6.0 x10^3uL (1.8-7.7) Lymphocytes # (Auto) 1.2 x10^3/uL (1.0-4.8) Monocytes # (Auto) 0.6 x10^3/uL (0.0-1.1) Eosinophils # (Auto) 0.3 x10^3/uL (0.0-0.7) Basophils # (Auto) 0.0 x10^3/uL (0.0-0.2) Sodium Level 140 mmol/L (136-145) Potassium Level 3.8 mmol/L (3.5-5.1) Chloride Level 106 mmol/L (98-107) Carbon Dioxide Level 27 mmol/L (21-32) Anion Gap 7 (6-14) Blood Urea Nitrogen 8 mg/dL (7-20) Creatinine 0.7 mg/dL (0.6-1.0) Estimated GFR (Cockcroft-Gault) 90.1 BUN/Creatinine Ratio 11 (6-20) Glucose Level 131 mg/dL (70-99) Calcium Level 7.5 mg/dL (8.5-10.1) Total Bilirubin 0.3 mg/dL (0.2-1.0) Aspartate Amino Transf (AST/SGOT) 20 U/L (15-37) Alanine Aminotransferase (ALT/SGPT) 29 U/L (14-59) Alkaline Phosphatase 54 U/L (46-116) Total Protein 6.4 g/dL (6.4-8.2) Albumin 3.0 g/dL (3.4-5.0) Albumin/Globulin Ratio 0.9 (1.0-1.7) JEFF VAUGHAN MD Dec 29, 2016 10:35
[2016-12-29 11:00] VITALS: BP 124/71
[2016-12-29] MEDS: ACETAMINOPHEN 325 MG TABLET. PO PRN (13:29)
[2016-12-29] MEDS ORDERED: METOCLOPRAMIDE HCL 10 MG/2 ML VIAL. IV PRN (14:00)
[2016-12-29] MEDS ORDERED: LORazepam 0.5 MG TABLET PO PRN (14:30)
[2016-12-29 15:16] VITALS: BP 112/62
[2016-12-29 19:20] VITALS: BP 96/53
[2016-12-29 23:05] VITALS: BP 94/48
[2016-12-30 03:00] VITALS: BP 122/52
[2016-12-30 06:02] LABS: BASO % 1 % (0-3); EOS % 5 % (0-3); HEMOGLOBIN 8.9 g/dL (12.0-15.5); LYMPH # 1.5 x10^3/uL (1.0-4.8); LYMPH % 22 % (24-48); MEAN CORPUSCULAR HEMOGLOBIN 31 pg (25-35); MEAN CORPUSCULAR HGB CONC 36 g/dL (31-37); MEAN CORPUSCULAR VOLUME 88 fL (79-100); MONO % 8 % (0-9); NEUT % 65 % (31-73); PLATELET COUNT 152 x10^3/uL (140-400); RED BLOOD COUNT 2.86 x10^6/uL (3.50-5.40); RED CELL DISTRIBUTION WIDTH 12.6 % (11.5-14.5); WHITE BLOOD COUNT 6.9 x10^3/uL (4.0-11.0)
[2016-12-30 06:22] LABS: ALBUMIN/GLOBULIN RATIO 0.8 (1.0-1.7); CALCIUM 8.4 mg/dL (8.5-10.1); CREATININE 0.7 mg/dL (0.6-1.0); GFR 90.1; POTASSIUM 3.8 mmol/L (3.5-5.1); TOTAL BILIRUBIN 0.3 mg/dL (0.2-1.0); TOTAL PROTEIN 6.9 g/dL (6.4-8.2)
[2016-12-30 07:00] VITALS: BP 118/72
[2016-12-30] MEDS: ACETAMINOPHEN 325 MG TABLET. PO PRN (08:03)
[2016-12-30] MEDS: LEVOTHYROXINE 50 MCG TABLET PO SCH (08:03)
[2016-12-30 11:00] VITALS: BP 116/66
--- NOTE | 2016-12-30 12:28 | PDOC ---
PROGRESS NOTES Subjective Subjective similar discomfort as before Objective Objective Vital Signs Date Time Temp Pulse Resp B/P (MAP) Pulse Ox O2 Delivery O2 Flow Rate FiO2 12/30/16 11:00 98.1 75 20 116/66 (83) 97 Room Air 98.1 12/28/16 11:01 2.0 Intake and Output 12/30/16 07:00 Intake Total 749 ml Balance 749 ml Intake Oral 400 ml IV Total 349 ml # Voids 5 Physical Exam Abdomen: Soft (mild tenderness right side) General: Alert, Oriented X3 Assessment Assessment R rectus bleed S/P embolization Plan Plan of Care No further recs, ok to DC home from our standpoint Comment Review of Relevant I have reviewed the following items edith (where applicable) has been applied. Labs Laboratory Tests Test 12/28/16 20:30 12/29/16 05:04 12/30/16 05:40 Hemoglobin 8.3 g/dL (12.0-15.5) 8.8 g/dL (12.0-15.5) 8.9 g/dL (12.0-15.5) White Blood Count 8.2 x10^3/uL (4.0-11.0) 6.9 x10^3/uL (4.0-11.0) Red Blood Count 2.83 x10^6/uL (3.50-5.40) 2.86 x10^6/uL (3.50-5.40) Hematocrit 24.9 % (36.0-47.0) 25.0 % (36.0-47.0) Mean Corpuscular Volume 88 fL (79-100) 88 fL (79-100) Mean Corpuscular Hemoglobin 31 pg (25-35) 31 pg (25-35) Mean Corpuscular Hemoglobin Concent 35 g/dL (31-37) 36 g/dL (31-37) Red Cell Distribution Width 12.7 % (11.5-14.5) 12.6 % (11.5-14.5) Platelet Count 142 x10^3/uL (140-400) 152 x10^3/uL (140-400) Neutrophils (%) (Auto) 73 % (31-73) 65 % (31-73) Lymphocytes (%) (Auto) 15 % (24-48) 22 % (24-48) Monocytes (%) (Auto) 7 % (0-9) 8 % (0-9) Eosinophils (%) (Auto) 4 % (0-3) 5 % (0-3) Basophils (%) (Auto) 1 % (0-3) 1 % (0-3) Neutrophils # (Auto) 6.0 x10^3uL (1.8-7.7) 4.5 x10^3uL (1.8-7.7) Lymphocytes # (Auto) 1.2 x10^3/uL (1.0-4.8) 1.5 x10^3/uL (1.0-4.8) Monocytes # (Auto) 0.6 x10^3/uL (0.0-1.1) 0.5 x10^3/uL (0.0-1.1) Eosinophils # (Auto) 0.3 x10^3/uL (0.0-0.7) 0.3 x10^3/uL (0.0-0.7) Basophils # (Auto) 0.0 x10^3/uL (0.0-0.2) 0.0 x10^3/uL (0.0-0.2) Sodium Level 140 mmol/L (136-145) 140 mmol/L (136-145) Potassium Level 3.8 mmol/L (3.5-5.1) 3.8 mmol/L (3.5-5.1) Chloride Level 106 mmol/L (98-107) 104 mmol/L (98-107) Carbon Dioxide Level 27 mmol/L (21-32) 28 mmol/L (21-32) Anion Gap 7 (6-14) 8 (6-14) Blood Urea Nitrogen 8 mg/dL (7-20) 8 mg/dL (7-20) Creatinine 0.7 mg/dL (0.6-1.0) 0.7 mg/dL (0.6-1.0) Estimated GFR (Cockcroft-Gault) 90.1 90.1 BUN/Creatinine Ratio 11 (6-20) 11 (6-20) Glucose Level 131 mg/dL (70-99) 121 mg/dL (70-99) Calcium Level 7.5 mg/dL (8.5-10.1) 8.4 mg/dL (8.5-10.1) Total Bilirubin 0.3 mg/dL (0.2-1.0) 0.3 mg/dL (0.2-1.0) Aspartate Amino Transf (AST/SGOT) 20 U/L (15-37) 16 U/L (15-37) Alanine Aminotransferase (ALT/SGPT) 29 U/L (14-59) 25 U/L (14-59) Alkaline Phosphatase 54 U/L (46-116) 56 U/L (46-116) Total Protein 6.4 g/dL (6.4-8.2) 6.9 g/dL (6.4-8.2) Albumin 3.0 g/dL (3.4-5.0) 3.0 g/dL (3.4-5.0) Albumin/Globulin Ratio 0.9 (1.0-1.7) 0.8 (1.0-1.7) Laboratory Tests Test 12/30/16 05:40 White Blood Count 6.9 x10^3/uL (4.0-11.0) Red Blood Count 2.86 x10^6/uL (3.50-5.40) Hemoglobin 8.9 g/dL (12.0-15.5) Hematocrit 25.0 % (36.0-47.0) Mean Corpuscular Volume 88 fL (79-100) Mean Corpuscular Hemoglobin 31 pg (25-35) Mean Corpuscular Hemoglobin Concent 36 g/dL (31-37) Red Cell Distribution Width 12.6 % (11.5-14.5) Platelet Count 152 x10^3/uL (140-400) Neutrophils (%) (Auto) 65 % (31-73) Lymphocytes (%) (Auto) 22 % (24-48) Monocytes (%) (Auto) 8 % (0-9) Eosinophils (%) (Auto) 5 % (0-3) Basophils (%) (Auto) 1 % (0-3) Neutrophils # (Auto) 4.5 x10^3uL (1.8-7.7) Lymphocytes # (Auto) 1.5 x10^3/uL (1.0-4.8) Monocytes # (Auto) 0.5 x10^3/uL (0.0-1.1) Eosinophils # (Auto) 0.3 x10^3/uL (0.0-0.7) Basophils # (Auto) 0.0 x10^3/uL (0.0-0.2) Sodium Level 140 mmol/L (136-145) Potassium Level 3.8 mmol/L (3.5-5.1) Chloride Level 104 mmol/L (98-107) Carbon Dioxide Level 28 mmol/L (21-32) Anion Gap 8 (6-14) Blood Urea Nitrogen 8 mg/dL (7-20) Creatinine 0.7 mg/dL (0.6-1.0) Estimated GFR (Cockcroft-Gault) 90.1 BUN/Creatinine Ratio 11 (6-20) Glucose Level 121 mg/dL (70-99) Calcium Level 8.4 mg/dL (8.5-10.1) Total Bilirubin 0.3 mg/dL (0.2-1.0) Aspartate Amino Transf (AST/SGOT) 16 U/L (15-37) Alanine Aminotransferase (ALT/SGPT) 25 U/L (14-59) Alkaline Phosphatase 56 U/L (46-116) Total Protein 6.9 g/dL (6.4-8.2) Albumin 3.0 g/dL (3.4-5.0) Albumin/Globulin Ratio 0.8 (1.0-1.7) Medications Current Medications Lorazepam (Ativan) 0.5 mg PRN Q8HRS PRN IV ANXIETY / AGITATION; Start 12/28/16 at 05:15; Stop 12/29/16 at 14:25; Status DC Hydromorphone HCl (Dilaudid) 0.3 mg PRN Q2HRS PRN IVP SEVERE PAIN Last administered on 12/29/16 07:56; Start 12/28/16 at 05:15; Stop 12/29/16 at 14:04; Status DC Sodium Chloride 1,000 ml @ 100 mls/hr Q10H IV Last administered on 12/28/16 23 :53; Start 12/28/16 at 05:15; Stop 12/29/16 at 08:19; Status DC Levothyroxine Sodium (Synthroid) 50 mcg DAILY07 PO Last administered on 08:03; Start 12/28/16 at 07:00 Iohexol (Omnipaque 300 Mg/ml) 100 ml STK-MED ONCE .ROUTE ; Start 12/28/16 at 07: 56; Stop 12/28/16 at 07:57; Status DC Lidocaine/Sodium Bicarbonate (Buffered Lidocaine 1%) 20 ml STK-MED ONCE IJ ; Start 12/28/16 at 07:56; Stop 12/28/16 at 07:57; Status DC Heparin Sodium/ Sodium Chloride 1,500 ml @ As Directed STK-MED ONCE .ROUTE ; Start 12/28/16 at 07:56; Stop 12/28/16 at 07:57; Status DC Fentanyl Citrate (Fentanyl 2ml Vial) 100 mcg STK-MED ONCE .ROUTE ; Start at 08:21; Stop 12/28/16 at 08:22; Status DC Midazolam HCl (Versed) 2 mg STK-MED ONCE .ROUTE ; Start 12/28/16 at 08:21; Stop 12/28/16 at 08:22; Status DC Heparin Sodium/ Sodium Chloride 500 ml @ As Directed STK-MED ONCE .ROUTE ; Start 12/28/16 at 08:35; Stop 12/28/16 at 08:36; Status DC Heparin Sodium/ Sodium Chloride 1,000 unit 1X ONCE IART Last administered on 09:26; Start 12/28/16 at 09:00; Stop 12/28/16 at 09:03; Status DC Heparin Sodium/ Sodium Chloride 1,000 unit 1X ONCE IART Last administered on 09:27; Start 12/28/16 at 09:00; Stop 12/28/16 at 09:03; Status DC Lidocaine/Sodium Bicarbonate (Buffered Lidocaine 1%) 2 ml 1X ONCE IJ Last administered on 12/28/16 09:27; Start 12/28/16 at 09:00; Stop 12/28/16 at 09:03; Status DC Midazolam HCl (Versed) 2 mg 1X ONCE IV Last administered on 12/28/16 09:28; Start 12/28/16 at 09:00; Stop 12/28/16 at 09:03; Status DC Fentanyl Citrate (Fentanyl 2ml Vial) 100 mcg 1X ONCE IV Last administered on 09:28; Start 12/28/16 at 09:00; Stop 12/28/16 at 09:03; Status DC Iohexol (Omnipaque 300 Mg/ml) 100 ml 1X ONCE IART Last administered on 09:27; Start 12/28/16 at 09:00; Stop 12/28/16 at 09:03; Status DC Info (Do NOT chart on this entry -- for MONITORING) 1 each PRN DAILY PRN MC SEE COMMENTS; Start 12/28/16 at 09:15; Stop 12/30/16 at 09:14; Status DC Sodium Chloride 1,000 ml @ 900 mls/hr 1X ONCE IV Last administered on 10:55; Start 12/28/16 at 11:00; Stop 12/28/16 at 12:06; Status DC Phytonadione 10 mg/Sodium Chloride 51 ml @ 102 mls/hr 1X ONCE IV Last administered on 12/28/16 14:40; Start 12/28/16 at 14:00; Stop 12/28/16 at 14:29; Status DC Ondansetron HCl (Zofran) 4 mg PRN Q6HRS PRN IV NAUSEA/VOMITING Last administered on 12/29/16 09:59; Start 12/29/16 at 04:30; Stop 12/29/16 at 14:04; Status DC Oxycodone/ Acetaminophen (Percocet 5/325) 2 tab PRN Q4HRS PRN PO PAIN Last administered on 12/29/16 13:33; Start 12/29/16 at 08:30; Stop 12/29/16 at 14:04; Status DC Acetaminophen (Tylenol) 650 mg PRN Q6HRS PRN PO HEADACHE Last administered on 08:03; Start 12/29/16 at 12:00 Oxycodone/ Acetaminophen (Percocet 5/325) 1 tab PRN Q4HRS PRN PO PAIN Last administered on 12/29/16 18:43; Start 12/29/16 at 14:00 Metoclopramide HCl (Reglan) 10 mg PRN Q6HRS PRN IV NAUSEA/VOMITING; Start at 14:00 Lorazepam (Ativan) 0.5 mg PRN Q8HRS PRN PO ANXIETY / AGITATION; Start 12/29/16 at 14:30 Active Scripts Active Reported Levothyroxine Sodium 50 Mcg Tablet 1 Tab PO DAILY Edarbi (Azilsartan Medoxomil) Unknown Strength Tablet 80 Mg PO DAILY Percocet 5-325 Mg Tablet (Oxycodone/Acetaminophen) 1 Each Tablet 1-2 Tab PO Q4HRS PRN Citalopram Hbr (Citalopram Hydrobromide) 20 Mg Tablet 20 Mg PO DAILY06 Vitals/I & O Vital Sign - Last 24 Hours 12/29/16 12/29/16 12/29/16 12/29/16 13:33 15:16 18:43 19:20 Temp 98.1 98.1 98.1 98.1 Pulse 70 78 Resp 18 16 B/P (MAP) 112/62 (79) 96/53 (67) Pulse Ox 93 95 O2 Delivery Room Air Room Air Room Air Room Air 12/29/16 12/29/16 12/29/16 12/30/16 19:53 20:00 23:05 03:00 Temp 98.1 98.0 98.1 98.0 Pulse 88 74 Resp 20 16 16 B/P (MAP) 94/48 (63) 122/52 (75) Pulse Ox 95 96 95 O2 Delivery Room Air Room Air Room Air Room Air 12/30/16 12/30/16 12/30/16 07:00 07:45 11:00 Temp 98.4 98.1 98.4 98.1 Pulse 75 75 Resp 20 20 B/P (MAP) 118/72 (87) 116/66 (83) Pulse Ox 95 97 O2 Delivery Room Air Room Air Room Air Intake and Output 12/29/16 12/29/16 12/30/16 15:00 23:00 07:00 Intake Total 749 ml Balance 749 ml AISHA RUIZ MD Dec 30, 2016 12:28
--- NOTE | 2016-12-30 13:54 | PDOC3 ---
Discharge Summary [facility] Date of Admission: Dec 28, 2016 Discharge Date: Dec 30, 2016 Admitting Diagnosis abdominal wall hematoma: s/p coil embolization of inferior epigastric art. on 12/28. no evidence of ongoing bleed Pain control: adequate. avoid narcotics as possible (see below) Nausea, constipation: switch to reglan for N/V. laxative PRN Anemia: acute bleed. moderate protein malnutrition: Alb 2.8, BMI 28. Problems: CONSULTS sx Brief Hospital Course Ms. Gutierrez is a 46 old F, who recently got hernia repair , was transferred from [facility] FOR abd wall henmatoma. pt got coil embolization of inferior epigastric A on 12/28. Hb stable. no transfusion. stilll abd pain, better, tolerated diet ok. dc home dc time 35min General: Alert, Oriented X3, Cooperative, No acute distress Heart: Regular rate Lungs: Clear Abdomen: Soft, no bruise , no tenderness. Extremities: No clubbing, No edema Skin: No rashes Problems: Disposition home CONDITION AT DISCHARGE: Improved, Stable Diet regular Scheduled Azilsartan Medoxomil (Edarbi), 80 MG PO DAILY, (Reported) Citalopram Hydrobromide (Citalopram Hbr), 20 MG PO DAILY06, (Reported) Levothyroxine Sodium (Levothyroxine Sodium), 1 TAB PO DAILY, (Reported) Scheduled PRN Oxycodone/Apap 5-325 (Percocet 5-325 Mg Tablet), 1-2 TAB PO Q4HRS PRN for PAIN, (Reported) Discontinued Medications Ferrous Sulfate (Ferrous Sulfate), 325 MG PO [id number], (Reported) Hydrocodone/Ibuprofen (Hydrocodone-Ibuprofen 7.5-200 ), Unknown Dose PO PRN Q6HRS PRN for PAIN, (Reported) Follow Up sx in 2 weeks ELIER HIGGINBOTHAM MD Dec 30, 2016 13:54
== END 2016-12-30 13:35 | disposition home or self-care (01) | DRG 981 ==
LOC: 1 WEST ICU 02:47 → 4 NORTH 15:47
PROVIDERS: ADMIT Internal Medicine Hematology & Oncology; ATTEND Internal Medicine Hematology & Oncology
PROC: 04V23DZ Restriction of Gastric Artery with Intraluminal Device, Percutaneous Approach (ICD-10-PCS; principal; 2016-12-28)
PROC: B41C1ZZ Fluoroscopy of Pelvic Arteries using Low Osmolar Contrast (ICD-10-PCS; 2016-12-28)
PROC: B41J1ZZ Fluoroscopy of Other Lower Arteries using Low Osmolar Contrast (ICD-10-PCS; 2016-12-28)
DX: S30.1XXA Contusion of abdominal wall, initial encounter (principal); K66.1 Hemoperitoneum; D62 Acute posthemorrhagic anemia; E44.0 Moderate protein-calorie malnutrition; E78.5 Hyperlipidemia, unspecified; I10 Essential (primary) hypertension; Z68.28 Body mass index [BMI] 28.0-28.9, adult; F32.9 Major depressive disorder, single episode, unspecified; Z83.49 Family history of other endocrine, nutritional and metabolic diseases; Z90.710 Acquired absence of both cervix and uterus; Z90.89 Acquired absence of other organs; Z88.2 Allergy status to sulfonamides; Z93.8 Other artificial opening status
CPT/HCPCS: 36415; 37244; 75625; 76937; 80053; 85018; 85027; 85610; 85730; 86850; 86900; 86901; 87641; 99152; 99153; C1713; C1760; C1769; C1887; C1892; C1894; G0269; J1170; J1644; J2250; J2405; J3010; J3430; J7030; Q9967

== ENCOUNTER → 2017-01-15 | Outpatient (CLI) | payer BC ==
[2016-12-30 11:00] VITALS: BP 116/66
[~2017-01-15] MED LIST changes: +AZIL40TA PO; +CITA10TA4 PO; +HYDR-79 PO; +LEVO50TA5 PO
[2017-01-15 10:58] LABS: BASO % 1 % (0-3); EOS % 1 % (0-3); HEMOGLOBIN 12.1 g/dL (12.0-15.5); LYMPH # 1.1 x10^3/uL (1.0-4.8); LYMPH % 12 % (24-48); MEAN CORPUSCULAR HEMOGLOBIN 30 pg (25-35); MEAN CORPUSCULAR HGB CONC 34 g/dL (31-37); MEAN CORPUSCULAR VOLUME 89 fL (79-100); MONO % 9 % (0-9); NEUT % 78 % (31-73); PLATELET COUNT 250 x10^3/uL (140-400); RED BLOOD COUNT 4.05 x10^6/uL (3.50-5.40); RED CELL DISTRIBUTION WIDTH 14.3 % (11.5-14.5); WHITE BLOOD COUNT 8.7 x10^3/uL (4.0-11.0)
[2017-01-15 11:17] LABS: ALBUMIN 3.8 g/dL (3.4-5.0); ALBUMIN/GLOBULIN RATIO 0.7 (1.0-1.7); CREATININE 0.9 mg/dL (0.6-1.0); GFR 67.4; POTASSIUM 3.8 mmol/L (3.5-5.1); TOTAL BILIRUBIN 0.8 mg/dL (0.2-1.0); TOTAL PROTEIN 9.1 g/dL (6.4-8.2)
== END | disposition home or self-care (01) ==
LOC: LAB 10:33
PROVIDERS: ATTEND Surgery
DX: M79.81 Nontraumatic hematoma of soft tissue (principal)
CPT/HCPCS: 36415; 80053; 85025